=== PATIENT | male | born 2000 ===

== ENCOUNTER 2020-07-23 07:51 | Emergency (ER) | payer SELFPAY ==
[~2020-07-23] VITALS: Ht 170.2 cm; Wt 70.0 kg
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
--- NOTE | 2020-07-23 08:05 | NUR ---
ER PROVIDER AT BEDSIDE FOR EVALUATION.
[2020-07-23] MEDS ORDERED: HYDROcodone/APAP 5/325 TABLET ONE (08:14)
--- NOTE | 2020-07-23 08:29 | NUR ---
PATIENT MEDICATED PER eMAR, ICE PACK GIVEN AND RIGHT HAND ELEVATED. X-RAY AT BEDSIDE.
[2020-07-23] MEDS ORDERED: PLEASE ENTER ALLERGIES MC SCH (08:30)
[2020-07-23] MEDS ORDERED: HYDROcodone/APAP 5/325 TABLET PO ONE (08:30)
--- NOTE | 2020-07-23 08:48 | NUR ---
PATIENT TO CT SCAN.
[2020-07-23] MEDS ORDERED: ONDANSETRON ODT 4 MG ONE (09:19)
--- NOTE | 2020-07-23 09:21 | NUR ---
ER PROVIDER AT BEDSIDE TO DISCUSS POC. PATIENT MEDICATED PER emAR.
[2020-07-23] MEDS ORDERED: KETOROLAC 30 MG/1 ML ONE (09:29)
[2020-07-23] MEDS ORDERED: KETOROLAC 30 MG/1 ML IM ONE (09:30)
[2020-07-23] MEDS ORDERED: ONDANSETRON ODT 4 MG PO ONE (09:30)
--- NOTE | 2020-07-23 09:46 | NUR ---
HVAC LEAD AT BEDSIDE APPLYING SPLINT. REPORT GIVEN TO KE THORNE FOR TRANSFER OF PATIENT CARE.
[2020-07-23 09:58] VITALS: BP 120/60
== END 2020-07-23 10:10 | disposition home or self-care (01) ==
LOC: ED 09:04
DX: S62.346A Nondisplaced fracture of base of fifth metacarpal bone, right hand, initial encounter for closed fracture (principal); S06.0X0A Concussion without loss of consciousness, initial encounter; R42 Dizziness and giddiness; F17.210 Nicotine dependence, cigarettes, uncomplicated; Y04.0XXA Assault by unarmed brawl or fight, initial encounter; Y93.89 Activity, other specified; Y92.098 Other place in other non-institutional residence as the place of occurrence of the external cause; Y99.8 Other external cause status
CPT/HCPCS: 29125; 70450; 73130; 96372; 99284; 99406; J1885; Q0162